=== PATIENT | female | born 1990 | race Caucasian/White ===

== ENCOUNTER 2025-03-26 22:24 | Emergency (ER) | payer MEDICAID ==
[~2025-03-26] VITALS: Ht 160 cm; Wt 70.5 kg
[2025-03-26 23:34] VITALS: O2SAT 99
[2025-03-27 00:48] LABS: BASOPHILS % 0.4 % (0.0-2.0); EOSINOPHILS % 0.9 % (0.0-5.0); HEMATOCRIT. 40.5 % (36.0-48.0); HEMOGLOBIN. 13.0 g/dL (12.0-16.0); LYMPHOCYTES % 26.8 % (20.0-50.0); MEAN PLATELET VOLUME 10.7 fl (7.4-10.4); MONOCYTES % 4.4 % (2.0-8.0); NEUTROPHILS % 67.5 % (40.0-76.0); PLATELET 211 x1000/uL (130-400); RED BLOOD CELL COUNT 5.13 mill/uL (4.2-5.4); RED CELL DISTRIBUTION WIDTH 16.6 % (11.6-14.6)
[2025-03-27] MEDS: KETOROLAC 15MG/ML VIAL IM ONE (01:00)
[2025-03-27] MEDS: ONDANSETRON 4MG ODT PO ONE (01:01)
[2025-03-27] MEDS: FAMOTIDINE 20MG TABLET PO ONE (01:01)
[2025-03-27] MEDS: MAGNESIUM/ALUMINUM HYDROXIDE/SIMETHICONE 30ML UDC PO ONE (01:01)
[2025-03-27 01:02] LABS: HCG SCREEN NEGATIVE
[2025-03-27 01:03] LABS: CREATININE 0.7 mg/dL (0.6-1.0)
[2025-03-27 01:04] LABS: UREA NITROGEN BLOOD 8 mg/dL (9-23)
[2025-03-27 01:05] LABS: ASPARTATE AMINOTRANSFERASE 19 IU/L (<34); PROTEIN TOTAL 7.7 g/dL (6.0-8.3)
[2025-03-27 01:06] LABS: BILIRUBIN DIRECT 0.1 mg/dL (<=3.0); BILIRUBIN TOTAL 0.4 mg/dL (0.1-1.0)
[2025-03-27 02:27] LABS: TROPONIN I HIGH SENSITIVITY < 4 ng/L (3.0-34)
[2025-03-27] MEDS ORDERED: IBUP-1455 MT (03:16)
[2025-03-27 03:47] VITALS: BP 112/84; PULSE 83; RESP 16; TEMP 36.8; O2SAT 99
== END 2025-03-27 03:48 | disposition home or self-care (01) ==
LOC: ER 22:24
DX: R07.9 Chest pain, unspecified (principal)
CPT/HCPCS: 99285; 80076; 80048; 84703; 83690; 85025; 84484; 36415; 71045; 76700; 93005; 96372; J1885; Z7610; Q0162